=== PATIENT | female | born 1965 | race Caucasian/White ===

== ENCOUNTER 2017-05-12 12:02 | Observation (INO) | payer OTHER ==
[~2017-05-12] VITALS: Ht 160 cm; Wt 84.6 kg
[2017-05-12 12:50] LABS: BASOPHIL % 0.4 % (0-2); PLATELET COUNT 304 x10^3mcL (130-400); RED CELL DISTRIBUTION WIDTH 13.8 % (11.5-14.5)
[2017-05-12 13:03] LABS: CALCIUM 9.4 mg/dL (8.5-10.1); CARBON DIOXIDE 30.1 mmol/L (21-32); CHLORIDE SERUM 102 mmol/L (98-107); CREATININE SERUM 0.7 mg/dL (0.6-1.0); GFR1 > 60 mL/min; GLUCOSE SERUM 94 mg/dL (74-106); POTASSIUM SERUM 3.9 mmol/L (3.5-5.1); SODIUM SERUM 140 mmol/L (136-145)
[2017-05-12 13:07] LABS: ALKALINE PHOSPHATASE 69 U/L (46-116); ALT/SGPT 22 U/L (14-59); AST/SGOT 11 U/L (15-37); BILIRUBIN TOTAL 0.2 mg/dL (0.20-1.00); LIPASE 173 IU/L (73-393); TRIGLYCERIDES 75 mg/dL (<150)
[2017-05-12 13:15] LABS: CHOLESTEROL 230 mg/dL (<200); CHOLESTEROL/HDL RATIO 2.9; HDL CHOLESTEROL 78 mg/dL (40-60); TOTAL PROTEIN, SERUM 8.4 g/dL (6.4-8.2)
[2017-05-12 13:17] LABS: FREE T4 1.13 ng/dL (0.76-1.46); FREE THYROXINE INDEX 3.1 ug/dL (1.4-4.5); T3 TOTAL 0.88 ng/mL; T4(THYROXINE) 8.7 ug/dL (4.7-13.3)
[2017-05-12 14:07] LABS: microscopic required? YES; urine erythrocyte NEGATIVE (NEGATIVE)
[2017-05-12] MEDS ORDERED: PROVIGIL200 MG PO (14:51)
[2017-05-12] MEDS ORDERED: TEMAZEPAM30 MG PO (14:51)
[2017-05-12] MEDS ORDERED: AVONEX30 MCG/0.1 IM (14:52)
[2017-05-12] MEDS ORDERED: [UNRECOGNIZED DRUG - CODE] PO (14:52)
[2017-05-12 15:49] LABS: MAGNESIUM 1.9 mg/dL (1.8-2.4); PHOSPHOROUS 3.2 mg/dL (2.5-4.9)
[2017-05-12 16:05] VITALS: BP 129/75
[2017-05-12 16:18] VITALS: BP 129/75
[2017-05-12 16:23] VITALS: Ht 160 cm; Wt 84.6 kg
[2017-05-12 17:52] LABS: AMPHETAMINE QUAL UR NONE DETECTED (NEG <=1000)
[2017-05-12] MEDS ORDERED: XANAX0.5 MG PO (17:59)
[2017-05-12 21:21] VITALS: BP 102/54
[2017-05-13 05:57] LABS: BASOPHIL % 0.3 % (0-2); PLATELET COUNT 273 x10^3mcL (130-400); RED CELL DISTRIBUTION WIDTH 14.1 % (11.5-14.5)
[2017-05-13 06:04] VITALS: BP 100/59
[2017-05-13 06:05] LABS: CALCIUM 8.8 mg/dL (8.5-10.1); CARBON DIOXIDE 32.7 mmol/L (21-32); CHLORIDE SERUM 107 mmol/L (98-107); CREATININE SERUM 0.8 mg/dL (0.6-1.0); GFR1 > 60 mL/min; GLUCOSE SERUM 97 mg/dL (74-106); PHOSPHOROUS 3.1 mg/dL (2.5-4.9); POTASSIUM SERUM 3.9 mmol/L (3.5-5.1); SODIUM SERUM 143 mmol/L (136-145)
[2017-05-13 09:43] VITALS: BP 123/71
[2017-05-13] MEDS ORDERED: LIPI10 PO ×2 (10:17→12:24)
[2017-05-13] MEDS ORDERED: ECO81 PO ×2 (10:17→12:24)
[2017-05-13] MEDS ORDERED: LAC PO ×2 (10:18→12:24)
[2017-05-13] MEDS ORDERED: LEVAQUIN750 MG PO ×2 (10:18→12:24)
[2017-05-13] MEDS ORDERED: LANSOPRAZOLE30 M2 PO ×2 (10:19→12:24)
[2017-05-13 11:37] VITALS: BP 123/71
[2017-05-13 13:20] VITALS: BP 150/77
== END 2017-05-13 12:55 | disposition home or self-care (01) | DRG 391 ==
LOC: ED 12:02 → DU 15:14
PROVIDERS: Specialist; ADMIT Family Medicine
DX: K21.9 Gastro-esophageal reflux disease without esophagitis (principal); N17.0 Acute kidney failure with tubular necrosis; N39.0 Urinary tract infection, site not specified; M75.30 Calcific tendinitis of unspecified shoulder; K57.90 Diverticulosis of intestine, part unspecified, without perforation or abscess without bleeding; G35 Multiple sclerosis; E78.00 Pure hypercholesterolemia, unspecified; F41.9 Anxiety disorder, unspecified; Z68.33 Body mass index [BMI] 33.0-33.9, adult
CPT/HCPCS: 83880; 84439; C9113; G0378; J1956; J2060; J7030; Q0092

== ENCOUNTER 2018-08-09 17:07 | Emergency (ER) | payer OTHER ==
[~2018-08-09] VITALS: Ht 160 cm; Wt 81.6 kg
[~2018-08-09 17:07] MED LIST: AVONEX30 MCG/0.1 IM; ECO81 PO; LAC PO; LANSOPRAZOLE30 M2 PO; LEVAQUIN750 MG PO; LIPI10 PO; PROVIGIL200 MG PO; TEMAZEPAM30 MG PO; XANAX0.5 MG PO; [UNRECOGNIZED DRUG - CODE] PO
[2018-08-09 17:32] VITALS: Ht 160 cm; Wt 81.6 kg
[2018-08-09 21:00] VITALS: BP 129/86
== END 2018-08-09 20:43 | disposition home or self-care (01) ==
LOC: ED 17:07
DX: S71.111A Laceration without foreign body, right thigh, initial encounter (principal); S91.311A Laceration without foreign body, right foot, initial encounter; S61.412A Laceration without foreign body of left hand, initial encounter; M54.5 Low back pain; Z88.0 Allergy status to penicillin; W25.XXXA Contact with sharp glass, initial encounter; Y93.89 Activity, other specified; Y92.89 Other specified places as the place of occurrence of the external cause; Y99.8 Other external cause status
CPT/HCPCS: J1885; J2001; Q0092

== ENCOUNTER 2018-08-12 07:10 | Emergency (ER) | payer OTHER ==
[~2018-08-12] VITALS: Ht 160 cm; Wt 79.4 kg
[2018-08-12 07:27] VITALS: Ht 160 cm; Wt 79.4 kg
[2018-08-12 08:43] VITALS: BP 113/73
== END 2018-08-12 08:43 | disposition home or self-care (01) ==
LOC: ED 07:10
DX: S61.412D Laceration without foreign body of left hand, subsequent encounter (principal); S71.111D Laceration without foreign body, right thigh, subsequent encounter; S91.311D Laceration without foreign body, right foot, subsequent encounter; G89.29 Other chronic pain; M54.5 Low back pain; Z88.0 Allergy status to penicillin; X58.XXXD Exposure to other specified factors, subsequent encounter